=== PATIENT | female | born 1995 | race Caucasian/White ===

== ENCOUNTER 2017-01-27 15:50 | Emergency (ER) | payer BC, MEDICAID ==
--- NOTE | 2017-01-27 18:37 | EDM.PDOC ---
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 Past medical history: As per history of present illness and as reviewed below otherwise noncontributory. Surgical history: As per history of present illness and as reviewed below otherwise noncontributory. Social history: No reported history of drug or alcohol abuse. Family history: As per history of present illness and as reviewed below otherwise noncontributory. Physical exam: Alert and oriented female who is good eye contact HEENT: Atraumatic, normocehpalic, pupils reactive, negative for conjunctival pallor or scleral icterus, mucous membranes moist, throat clear, neck supple, nontender, trachea midline. Lungs: Clear to auscultation, breath sounds equal bilaterally, chest non tender. Heart: S1S2, regular, negative for clicks, rubs, or JVD. Abdomen: Soft, nondistended, nontender. Negative for masses or hepatossplenmegaly. Negative for costovertebral tenderness. Pelvis: Stable nontender. Genitourinary: Deferred. Rectal: Deferred Extremities: Atraumatic, negative for cords or calf pain. Neurovascular unremarkable. Neuro: Awake, alert, oriented. Cranial nerves II through XII unremarkable. Cerebellum unremarkable. Motor and sensory unremarkable throughout. Exam nonfocal. Diagnostics: [Transvaginal ultrasound CBC UA] Therapeutics: [] Impression: []Nonviable pregnancyAB UTI Plan: [Amoxicillin 500 3 times a day 7 days] Definitive disposition and diagnosis as appropriate pending reevaluation and review of above. Onset: Today, Sudden Duration: Hour(s): Location: Reports: Pelvis Bilateral Lower Abdomen Pain Score (Numeric/FACES): 5 - Related Data Allergies Allergy/AdvReac Type Severity Reaction Status Date / Time No Known Allergies Allergy Verified 01/31/15 23:06 Home Meds: Home Meds Vit No.78/Iron/Fa [Prenatabs FA] 1 each PO DAILY 01/25/15 [History] Amoxicillin 500 mg PO TID #21 capsule 01/27/17 [Rx] Past Medical History - Past Health History Medical/Surgical History: Denies Medical/Surgical History Cardiovascular History: Reports: None Respiratory History: Reports: None Gastrointestinal History: Reports: None Genitourinary History: Reports: STD Other Genitourinary History: Chlamydia 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: Musculoskeletal History: Reports: None Neurological History: Reports: None Psychiatric History: Reports: None Endocrine/Metabolic History: Reports: None Hematologic History: Reports: None Immunologic History: Reports: None Oncologic (Cancer) History: Reports: None Dermatologic History: Reports: None - Infectious Disease History Infectious Disease History: Reports: None Other Infectious Disease History: Chlamydia - Past Surgical History Head Surgeries/Procedures: Reports: None HEENT Surgical History: Reports: Adenoidectomy, Tonsillectomy Female Surgical History: Reports: Section Social & Family History - Tobacco Use Smoking Status *Q: Current Every Day Smoker Years of Tobacco use: 13 Packs/Tins Daily: 0.5 Used Tobacco, but Quit: No Second Hand Smoke Exposure: Yes - Recreational Drug Use Recreational Drug Use: No ED ROS GENERAL - Review of Systems Review Of Systems: ROS reveals no pertinent complaints other than HPI. ED EXAM, GI/ABD - Physical Exam Exam: See Below (see dictation) Course - Vital Signs Last Recorded V/S: Last Vital Signs Temp 36.7 C 01/27/17 16:05 Pulse 105 H 01/27/17 16:05 Resp 18 01/27/17 16:05 BP 114/66 01/27/17 16:05 Pulse Ox 98 01/27/17 16:05 - Orders/Labs/Meds Orders: Active Orders 24 hr Category Date Time Status EKG Documentation Completion [RC] STAT Care 01/27/17 17:24 Inactive Orthostatic Vital Signs [RC] ASDIRECTED Care 01/27/17 17:23 Inactive OB Transvaginal [US] Stat Exams 01/27/17 17:14 Taken Labs: Laboratory Tests 01/27/17 01/27/17 01/27/17 Range/Units 16:20 16:20 17:36 WBC 10.04 (4.0-11.0) K/uL RBC 4.37 (4.30-5.90) M/uL Hgb 12.8 (12.0-16.0) g/dL Hct 38.3 (36.0-46.0) % MCV 87.6 (80.0-98.0) fL MCH 29.3 (27.0-32.0) pg MCHC 33.4 (31.0-37.0) g/dL RDW Std Deviation 44.3 (28.0-62.0) fl RDW Coeff of Juju 14 (11.0-15.0) % Plt Count 247 (150-400) K/uL MPV 10.10 (7.40-12.00) fL Neut % (Auto) 67.0 (48.0-80.0) % Lymph % (Auto) 24.1 (16.0-40.0) % [place] % (Auto) 6.9 (0.0-15.0) % Eos % (Auto) 1.8 (0.0-7.0) % Baso % (Auto) 0.2 (0.0-1.5) % Neut # (Auto) 6.7 H (1.4-5.7) K/uL Lymph # (Auto) 2.4 (0.6-2.4) K/uL [place] # (Auto) 0.7 (0.0-0.8) K/uL Eos # (Auto) 0.2 (0.0-0.7) K/uL Baso # (Auto) 0.0 (0.0-0.1) K/uL Nucleated RBC % 0.0 /100WBC Nucleated RBCs # 0 K/uL HCG, Quant mIU/mL Urine Color YELLOW Urine Appearance SLT CLOUDY Urine pH 6.0 (5.0-8.0) Ur Specific [place] 1.025 (1.001-1.035) Urine Protein NEGATIVE (NEGATIVE) mg/dL Urine Glucose (UA) NEGATIVE (NEGATIVE) mg/dL Urine Ketones NEGATIVE (NEGATIVE) mg/dL Urine Occult Blood LARGE H (NEGATIVE) Urine Nitrite POSITIVE H (NEGATIVE) Urine Bilirubin NEGATIVE (NEGATIVE) Urine Urobilinogen 0.2 (<2.0) EU/dL Ur Leukocyte Esterase NEGATIVE (NEGATIVE) Urine RBC 1-3 (0-2/HPF) Urine WBC 3-5 (0-5/HPF) Ur Epithelial Cells FEW (NONE-FEW) Urine Bacteria 3+ H (NEGATIVE) Urine Mucus MODERATE (NONE-MOD) Urine HCG, Qual POSITIVE (NEGATIVE) 01/27/17 Range/Units 17:36 WBC (4.0-11.0) K/uL RBC (4.30-5.90) M/uL Hgb (12.0-16.0) g/dL Hct (36.0-46.0) % MCV (80.0-98.0) fL MCH (27.0-32.0) pg MCHC (31.0-37.0) g/dL RDW Std Deviation (28.0-62.0) fl RDW Coeff of Juju (11.0-15.0) % Plt Count (150-400) K/uL MPV (7.40-12.00) fL Neut % (Auto) (48.0-80.0) % Lymph % (Auto) (16.0-40.0) % [place] % (Auto) (0.0-15.0) % Eos % (Auto) (0.0-7.0) % Baso % (Auto) (0.0-1.5) % Neut # (Auto) (1.4-5.7) K/uL Lymph # (Auto) (0.6-2.4) K/uL [place] # (Auto) (0.0-0.8) K/uL Eos # (Auto) (0.0-0.7) K/uL Baso # (Auto) (0.0-0.1) K/uL Nucleated RBC % /100WBC Nucleated RBCs # K/uL HCG, Quant 28724.5 mIU/mL Urine Color Urine Appearance Urine pH (5.0-8.0) Ur Specific [place] (1.001-1.035) Urine Protein (NEGATIVE) mg/dL Urine Glucose (UA) (NEGATIVE) mg/dL Urine Ketones (NEGATIVE) mg/dL Urine Occult Blood (NEGATIVE) Urine Nitrite (NEGATIVE) Urine Bilirubin (NEGATIVE) Urine Urobilinogen (<2.0) EU/dL Ur Leukocyte Esterase (NEGATIVE) Urine RBC (0-2/HPF) Urine WBC (0-5/HPF) Ur Epithelial Cells (NONE-FEW) Urine Bacteria (NEGATIVE) Urine Mucus (NONE-MOD) Urine HCG, Qual (NEGATIVE) Departure - Departure Time of Disposition: 18:34 Disposition: Home, Self-Care 01 Condition: Good Clinical Impression: Incomplete - Discharge Information Prescriptions: Amoxicillin 500 mg PO TID #21 capsule Forms: ED Department Discharge Additional Instructions: The following information is given to patients seen in the emergency department who are being discharged to home. This information is to outline your options for follow-up care. We provide all patients seen in our emergency department with a follow-up referral. The need for follow-up, as well as the timing and circumstances, are variable depending upon the specifics of your emergency department visit. If you don't have a primary care physician on staff, we will provide you with a referral. We always advise you to contact your personal physician following an emergency department visit to inform them of the circumstance of the visit and for follow-up with them and/or the need for any referrals to a consulting specialist. The emergency department will also refer you to a specialist when appropriate. This referral assures that you have the opportunity for followup care with a specialist. All of these measure are taken in an effort to provide you with optimal care, which includes your followup. Under all circumstances we always encourage you to contact your private physician who remains a resource for coordinating your care. When calling for followup care, please make the office aware that this follow-up is from your recent emergency room visit. If for any reason you are refused follow-up, please contact the [facility] emergency department at and asked to speak to the emergency department charge nurse. You have an incomplete miscarriage at this time Keep appointment with Dr. Moise tomorrow Was noted that she had a urinary tract infection amoxicillin prescription has been sent to your pharmacy - My Orders Last 24 Hours: My Active Orders 01/27/17 17:14 OB Transvaginal [US] Stat 01/27/17 17:23 Orthostatic Vital Signs [RC] ASDIRECTED 01/27/17 17:24 EKG Documentation Completion [RC] STAT - Assessment/Plan Last 24 Hours: My Active Orders 01/27/17 17:14 OB Transvaginal [US] Stat 01/27/17 17:23 Orthostatic Vital Signs [RC] ASDIRECTED 01/27/17 17:24 EKG Documentation Completion [RC] STAT
[2017-01-27 18:56] VITALS: BP 113/65
--- NOTE | 2017-01-28 09:03 | US ---
EXAM DATE: 01/27/17 PATIENT'S AGE: 21 Patient: DAYDAY MORENO Facility: [place], [place] Site . Site : 1995 Study: US OB Pelvis [id number] 5:39:57 PM Ordering Physician: Doctor Garcia Final Report: Indication: Pain, 6 weeks Technique: Ultrasound OB pelvis, transvaginal only Comparison: None Findings: The endometrium is thickened at 1.7 centimeters. No evidence of an intrauterine gestational sac. Complex material in the endometrial canal at the level of the lower uterine segment. Findings may represent retained products of conception or blood products. The ovaries and adnexa are normal. No free fluid identified. Impression: No evidence of intrauterine gestational sac. Correlate with beta HCG levels. Complex material endometrial canal at the level of the lower uterine segment. Findings may represent retained products of conception or blood products. Thickened endometrium at 17 millimeters. Normal ovaries and adnexa. Dictated by Keron Reese MD @ 01/27/2017 6:23:47 PM Dictated by: Keron Reese MD @ 01/27/2017 18:24:03 (Electronic Signature) Report Signed by Proxy. MATT
== END 2017-01-27 18:52 | disposition home or self-care (01) ==
LOC: MW.ED 15:50
DX: O03.4 Incomplete spontaneous abortion without complication (principal); F17.210 Nicotine dependence, cigarettes, uncomplicated; Z98.890 Other specified postprocedural states
CPT/HCPCS: 36415; 76817; 76817-26; 81001; 81025; 84702; 85025; 99283; 99284-25

== ENCOUNTER 2017-11-16 13:31 | Emergency (ER) | payer OTHER ==
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
[2017-11-16 15:33] VITALS: BP 102/58
== END 2017-11-16 16:02 | disposition home or self-care (01) ==
LOC: MW.ED 13:31
DX: O9A.213 Injury, poisoning and certain other consequences of external causes complicating pregnancy, third trimester (principal); S50.311A Abrasion of right elbow, initial encounter; O99.333 Smoking (tobacco) complicating pregnancy, third trimester; F17.210 Nicotine dependence, cigarettes, uncomplicated; Z3A.33 33 weeks gestation of pregnancy; V49.50XA Passenger injured in collision with unspecified motor vehicles in traffic accident, initial encounter
CPT/HCPCS: 99284; G0390

== ENCOUNTER 2017-12-23 05:00 | Inpatient (IN) | payer MEDICAID ==
[~2017-12-23 05:00] MED LIST: Citric Acid/Sodium Citrate Solution 30 ML Cup PO SCH; Lactated Ringers 1,000 ML IV SCH; Oxytocin/0.9 % Sodium Chloride 30 UNIT/500 ML BAG IV SCH; Sodium Chloride 0.9% 10 ML Syringe FLUSH PRN; Sodium Chloride 0.9% 2.5 ML Syringe FLUSH PRN; [UNRECOGNIZED DRUG - REMARK] PO SCH; ceFAZolin 1 GM in Premix Bag 1 BAG IV ONE
[2017-12-23] MEDS: Lactated Ringers 1,000 ML IV SCH ×2 (05:40→07:52)
[2017-12-23] MEDS ORDERED: Citric Acid/Sodium Citrate Solution 30 ML Cup PO SCH (06:00)
[2017-12-23] MEDS ORDERED: Prenatal Multivitamin and Multimineral with Iron Tab PO SCH (06:00)
[2017-12-23] MEDS ORDERED: Oxytocin/0.9 % Sodium Chloride 30 UNIT/500 ML BAG IV SCH (06:00)
[2017-12-23] MEDS ORDERED: Sodium Chloride 0.9% 10 ML Syringe FLUSH PRN (06:00)
[2017-12-23] MEDS ORDERED: Sodium Chloride 0.9% 2.5 ML Syringe FLUSH PRN (06:00)
--- NOTE | 2017-12-23 07:05 | PCM.PREANE ---
Preanesthetic Assessment - Anesthesia/Transfusion/Family Hx Anesthesia History: Prior Anesthesia Reaction Other Type of Anesthesia Reaction Comment: patient states she was numb for a week post-anesthesia Family History of Anesthesia Reaction: No Transfusion History: No Prior Transfusion(s) Intubation History: Unknown - Review of Systems General: No Symptoms Pulmonary: No Symptoms Cardiovascular: No Symptoms Gastrointestinal: No Symptoms Neurological: No Symptoms Other: Reports: None - Physical Assessment Height: 1.57 m Weight: 54.885 kg ASA Class: 2 Mental Status: Alert & Oriented x3 Airway Class: Mallampati = 1 Dentition: Reports: Normal Dentition (lower retainer) Thyro-Mental Finger Breadths: 3 Mouth Opening Finger Breadths: 3 ROM/Head Extension: Full Lungs: Clear to Auscultation, Normal Respiratory Effort Cardiovascular: Regular Rate, Regular Rhythm - Lab Values: Laboratory Last Values WBC 9.91 K/uL (4.0-11.0) 12/23/17 05:35 RBC 3.70 M/uL (4.30-5.90) L 12/23/17 05:35 Hgb 11.0 g/dL (12.0-16.0) L 12/23/17 05:35 Hct 32.9 % (36.0-46.0) L 12/23/17 05:35 MCV 88.9 fL (80.0-98.0) 12/23/17 05:35 MCH 29.7 pg (27.0-32.0) 12/23/17 05:35 MCHC 33.4 g/dL (31.0-37.0) 12/23/17 05:35 RDW Std Deviation 44.1 fl (28.0-62.0) 12/23/17 05:35 RDW Coeff of Juju 14 % (11.0-15.0) 12/23/17 05:35 Plt Count 244 K/uL (150-400) 12/23/17 05:35 MPV 10.80 fL (7.40-12.00) 12/23/17 05:35 Nucleated RBC % 0.0 /100WBC 12/23/17 05:35 Nucleated RBCs # 0 K/uL 12/23/17 05:35 Blood Type O POSITIVE 12/23/17 05:35 Antibody Screen NEGATIVE 12/23/17 05:35 - Allergies Allergies/Adverse Reactions: Allergies Allergy/AdvReac Type Severity Reaction Status Date / Time No Known Allergies Allergy Verified 12/23/17 06:44 - Blood Blood Available: No - Anesthesia Plan Pre-Op Medication Ordered: None - Acknowledgements Anesthesia Type Planned: Spinal Pt an Appropriate Candidate for the Planned Anesthesia: Yes Alternatives and Risks of Anesthesia Discussed w Pt/Guardian: Yes Pt/Guardian Understands and Agrees with Anesthesia Plan: Yes PreAnesthesia Questionnaire - Past Health History Medical/Surgical History: Denies Medical/Surgical History HEENT History: Reports: Other (See Below) Other HEENT History: has permanent dental retainer Cardiovascular History: Reports: None Respiratory History: Reports: None Gastrointestinal History: Reports: GERD Other Gastrointestinal History: during Genitourinary History: Reports: None Other Genitourinary History: Chlamydia 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: , 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 Musculoskeletal History: Reports: Back Pain, Chronic, Other (See Below) Other Musculoskeletal History: 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" Neurological History: Reports: None Psychiatric History: Reports: None Endocrine/Metabolic History: Reports: None Hematologic History: Reports: None Immunologic History: Reports: None Oncologic (Cancer) History: Reports: None Dermatologic History: Reports: None - Infectious Disease History Infectious Disease History: Reports: None Other Infectious Disease History: Chlamydia - Past Surgical History HEENT Surgical History: Reports: Adenoidectomy, Tonsillectomy Female Surgical History: Reports: Section (x2, one with epidural the other with spinal) Musculoskeletal Surgical History: Reports: None - SUBSTANCE USE Smoking Status *Q: Current Every Day Smoker Tobacco Use Within Last Twelve Months: Cigarettes Recreational Drug Use History: No - HOME MEDS Home Medications: Home Meds Vit No.78/Iron/Fa [Prenatabs FA] 1 each PO DAILY 01/25/15 [History] - CURRENT (IN HOUSE) MEDS Current Meds: Current Medications Citric Acid/Sodium Citrate (Bicitra Solution) 30 ml PO .ONCE CHENG Lactated Ringer's (Ringers, Lactated) 1,000 mls @ 500 mls/hr IV .BOLUS CHENG Last Admin: 12/23/17 05:40 Dose: 150 mls/hr Oxytocin/Sodium Chloride (Oxytocin 30 Unit/500 Ml-Ns) 30 unit in 500 mls @ 250 mls/hr IV TITRATE CHENG Cefazolin Sodium/Dextrose 1 gm (/ Premix) 50 mls @ 100 mls/hr IV ONETIME ONE Stop: 12/23/17 08:04 Prenat Multivit/[place]/Iron/Folic Ac ( Mtr) 1 each PO DAILY CHENG Sodium Chloride (Saline Flush) 10 ml FLUSH ASDIRECTED PRN PRN Reason: Keep Vein Open Sodium Chloride (Saline Flush) 2.5 ml FLUSH ASDIRECTED PRN PRN Reason: Keep Vein Open Discontinued Medications Citric Acid/Sodium Citrate (Bicitra Solution) 30 ml PO .ONCE CHENG Cefazolin Sodium/Dextrose 1 gm (/ Premix) 50 mls @ 100 mls/hr IV ONETIME ONE Stop: 12/22/17 09:04 Lactated Ringer's (Ringers, Lactated) 1,000 mls @ 500 mls/hr IV .BOLUS CHENG Oxytocin/Sodium Chloride (Oxytocin 30 Unit/500 Ml-Ns) 30 unit in 500 mls @ 250 mls/hr IV TITRATE CHENG Non-Formulary Medication ( Vit No.78/Iron/Fa [Prenatabs Fa]) 1 each PO DAILY CHENG Sodium Chloride (Saline Flush) 10 ml FLUSH ASDIRECTED PRN PRN Reason: Keep Vein Open Sodium Chloride (Saline Flush) 2.5 ml FLUSH ASDIRECTED PRN PRN Reason: Keep Vein Open
[2017-12-23] MEDS ORDERED: Ondansetron 4 MG/2 ML SDV ONE (07:16)
[2017-12-23] MEDS ORDERED: Oxytocin 10 Units/1 ML SDV ONE (07:16)
[2017-12-23] MEDS ORDERED: Morphine PF 1 MG/ML Amp ONE (07:17)
[2017-12-23] MEDS ORDERED: ceFAZolin 1 GM in Premix Bag 1 BAG IV ONE (07:35)
[2017-12-23] MEDS ORDERED: Citric Acid/Sodium Citrate Solution 30 ML Cup ONE (07:49)
[2017-12-23] MEDS ORDERED: Sodium Chloride 0.9% 20 ML ONE (08:06)
[2017-12-23] MEDS ORDERED: ceFAZolin 1 GM Vial ONE (08:06)
[2017-12-23] MEDS ORDERED: Glycopyrrolate 0.2 MG/ML SDV ONE ×2 (08:12→08:17)
[2017-12-23] MEDS ORDERED: Phenylephrine/Normal Saline 100 MCG/ML 10 ML Syringe ONE (08:29)
[2017-12-23] MEDS ORDERED: Octyl 2-Cyanoacrylate 1 Tube ONE (08:33)
--- NOTE | 2017-12-23 08:51 | PCM.OPNOTE ---
- General Post-Op/Procedure Note Date of Surgery/Procedure: 12/23/17 Operative Procedure(s): repeat low transverse Findings: liveborn male 99 weight 3250 grams, normal appearing uterus, tubes and ovaries. Pre Op Diagnosis: 39 1/7 weeks prior c-sections Post-Op Diagnosis: Same Anesthesia Technique: Spinal Primary Surgeon: Christiane Fabian Anesthesia Provider: Aida Cunningham Pole Shaver: Napoleon Galvin Pathology: none Fluid Replacement, Intraop: 800 EBL in mLs: 500 Complications: None Known Condition: Good
[2017-12-23] MEDS ORDERED: Bisacodyl 10 MG Supp RECTAL PRN (08:52)
[2017-12-23] MEDS ORDERED: Acetaminophen/oxyCODONE 325-5 MG Tab PO PRN (08:52)
[2017-12-23] MEDS ORDERED: Lanolin 100% Cream 7 GM Tube TOP PRN (08:52)
[2017-12-23] MEDS ORDERED: Ondansetron 4 MG/2 ML SDV IV PRN (08:52)
[2017-12-23] MEDS ORDERED: diphenhydrAMINE 50 MG/ML SDV IVPUSH PRN ×2 (08:52→15:50)
[2017-12-23] MEDS ORDERED: Lactated Ringers 1,000 ML IV SCH (09:00)
[2017-12-23] MEDS ORDERED: Ketorolac 30 MG/ML SDV ONE (09:04)
[2017-12-23] MEDS: Ketorolac 30 MG/ML SDV IVPUSH SCH ×3 (09:05→21:01)
[2017-12-23] MEDS: Docusate Sodium 100 MG Cap PO SCH ×2 (13:02→21:01)
[2017-12-23] MEDS: Nicotine 21 MG/24 Hr Patch TRDERM SCH (13:34)
--- NOTE | 2017-12-23 15:02 | OR ---
SURGEON: Christiane Fabian M.D. DATE OF PROCEDURE: 12/23/2017 PREOPERATIVE DIAGNOSES: 1. A 39 and 1/7 week intrauterine . 2. Prior delivery x2. POSTOPERATIVE DIAGNOSES: 1. A 39 and 1/7 week intrauterine . 2. Prior delivery x2. PROCEDURE: Repeat low-transverse section. ANESTHESIA: Spinal. ESTIMATED BLOOD LOSS: Less than 500 mL. FLUIDS: 800 mL crystalloid. FINDINGS: Live born male, scores 9 and 9, weighing 3250 g. Normal-appearing uterus, tubes, and ovaries. COMPLICATIONS: None known. DISPOSITION: Stable to recovery. BRIEF HISTORY: This is a 22-year-old female, she is G3, P2 who presents at 39 and 1/7 weeks for repeat low-transverse section. Her care has been with Aminah Duggan, and Dr. Elizalde for whom I am covering as Locums. She presents at 39 and 1/7 weeks requesting repeat with risks having been discussed including bleeding, infection, injury to bowel, bladder, blood vessels, ureters or other organs, risk of thromboembolic event, risk of anesthesia. Understanding all these risks, she does desire to proceed. DESCRIPTION OF PROCEDURE: With the patient in left tilt position, under adequate spinal analgesia, the abdomen was prepped with chlorhexidine and draped in usual fashion for abdominal surgery. SCDs were in place. Barakat catheter had been placed. She had received 1 g of Ancef IV and an appropriate time-out was held. The prior cicatrix was excised and transverse incision was carried across the lower abdomen, 2 cm cephalad from the pubic symphysis to the fascia, which was scored transversely in the midline. The fascial incision was extended laterally using curved Jensen scissors. The rectus muscles were bluntly in the midline and the Vahid O retractor was placed. The visceroperitoneum over the lower uterine segment was incised to develop an adequate bladder flap and a transverse curvilinear incision was made over the lower uterine segment and incised bluntly. The amniotic membranes were ruptured, clear fluid was noted. The head was delivered via the uterine incision with fundal pressure with subsequent delivery of the infant's shoulders and body without any difficulty. The was bulb suctioned by nose and mouth. Cord was clamped x2 and cut. The handed to the nurse in attendance at delivery. The was a liveborn male, scores 9 and 9, weighing 3250 g. Cord blood was collected for cord ABGs as well as routine cord blood sampling. The placenta was removed by manual extraction. The uterus was cleaned with a dry laparotomy tape. The cervix was opened with a ring forceps. The uterine incision was closed with a running lock suture of 0 Polysorb followed by an imbricating layer of 0 Polysorb. The posterior cul-de-sac and paracolic gutters were cleaned with a wet laparotomy tape. The uterine incision was inspected, there was a single area of bleeding in the midline, which was controlled with a single figure-of- eight suture of 0 Polysorb. With the uterine incision being completely hemostatic, the uterus being firm having received Pitocin, the Vahid retractor was removed. Preliminary sponge count was correct. The rectus muscle and peritoneum were loosely approximated in the midline using a running mattress suture of 0 Polysorb. The posterior aspect of the fascia was inspected and any areas of bleeding that were noted were cauterized. The fascial incision was closed with a running suture of 0 Polysorb. Subcutaneous tissue was irrigated. Any areas of bleeding that were noted were cauterized. The skin was closed with a running subcuticular suture of 4-0 Monocryl followed by Dermabond. Final sponge, needle, and instrument counts were reported as correct. There were no known complications. The patient was transferred to recovery in good condition. is in nursery in good condition. OPAL TENORIO /[id number]
[2017-12-23] MEDS ORDERED: Naloxone 0.4 MG/ML Syringe IVPUSH PRN (15:50)
[2017-12-23] MEDS ORDERED: Nalbuphine 10 MG/ML 10 ML MDV IVPUSH PRN (15:50)
[2017-12-24] MEDS: Ketorolac 30 MG/ML SDV IVPUSH SCH ×2 (03:08→08:53)
--- NOTE | 2017-12-24 07:58 | PCM.PNPP ---
<DebTejal - Last Filed: 12/24/17 07:55> - General Info Date of Service: 12/24/17 - Review of Systems General: Denies: Fever, Weakness, Fatigue Pulmonary: Denies: Shortness of Breath, Pleuritic Chest Pain, Cough Cardiovascular: Denies: Chest Pain, Palpitations, Dyspnea on Exertion Gastrointestinal: Denies: Abdominal Pain Genitourinary: Denies: Dysuria - General Info Date of Service: 12/24/17 - Patient Data Vital Signs - Most Recent: Last Vital Signs Temp 36.4 C 12/24/17 04:00 Pulse 65 12/24/17 07:43 Resp 16 12/24/17 06:00 BP 99/57 L 12/24/17 04:00 Pulse Ox 96 12/24/17 07:43 Weight - Most Recent: 54.885 kg I&O - Last 24 Hours: Intake & Output 12/23/17 12/24/17 12/24/17 22:59 06:59 14:59 Output Total 950 Balance -950 Lab Results - Last 24 Hours: Laboratory Results - last 24 hr 12/24/17 Range/Units 05:10 Hgb 8.8 L (12.0-16.0) g/dL Hct 26.3 L (36.0-46.0) % Med Orders - Current: Current Medications Bisacodyl (Dulcolax) 10 mg RECTAL .ONCE PRN PRN Reason: Constipation Diphenhydramine HCl (Benadryl) 25 mg IVPUSH Q6H PRN PRN Reason: Itching or Nausea Diphenhydramine HCl (Benadryl) 25 mg IVPUSH Q4H PRN PRN Reason: Itching Stop: 12/24/17 15:53 Docusate Sodium (Colace) 100 mg PO BID [facility] Last Admin: 12/23/17 21:01 Dose: 100 mg Emollient Ointment (Lansinoh Hpa) 0 gm TOP ASDIRECTED PRN PRN Reason: Sore Nipples Lactated Ringer's (Ringers, Lactated) 1,000 mls @ 125 mls/hr IV ASDIRECTED [facility] Ibuprofen (Motrin) 800 mg PO Q8H PRN PRN Reason: mild pain or fever Ketorolac Tromethamine (Toradol) 30 mg IVPUSH Q6H [facility] Stop: 12/24/17 09:01 Last Admin: 12/24/17 03:08 Dose: 30 mg Nalbuphine HCl (Nubain) 5 mg IVPUSH Q3H PRN PRN Reason: Pruritis Stop: 12/24/17 15:52 Naloxone HCl (Narcan) 0.1 mg IVPUSH ONETIME PRN PRN Reason: Respiratory Depression Stop: 12/24/17 15:53 Nicotine (Habitrol) 21 mg TRDERM DAILY [facility] Last Admin: 12/23/17 13:34 Dose: 21 mg Ondansetron HCl (Zofran) 4 mg IV Q4H PRN PRN Reason: Nausea/Vomiting Oxycodone/Acetaminophen (Percocet 325-5 Mg) 1 tab PO Q4H PRN PRN Reason: Pain (moderate 4-6) Oxycodone/Acetaminophen (Percocet 325-5 Mg) 2 tab PO Q4H PRN PRN Reason: Pain (moderate 4-6) Discontinued Medications Cefazolin Sodium (Ancef) Confirm Administered Dose 1 gm .ROUTE .STK-MED ONE Stop: 12/23/17 08:07 Citric Acid/Sodium Citrate (Bicitra Solution) 30 ml PO .ONCE [facility] Citric Acid/Sodium Citrate (Bicitra Solution) 30 ml PO .ONCE [facility] Last Admin: 12/23/17 07:51 Dose: 30 ml Citric Acid/Sodium Citrate (Bicitra Solution) Confirm Administered Dose 30 ml .ROUTE .STK-MED ONE Stop: 12/23/17 07:50 Glycopyrrolate (Robinul) Confirm Administered Dose 0.2 mg .ROUTE .STK-MED ONE Stop: 12/23/17 08:13 Glycopyrrolate (Robinul) Confirm Administered Dose 0.2 mg .ROUTE .STK-MED ONE Stop: 12/23/17 08:18 Cefazolin Sodium/Dextrose 1 gm (/ Premix) 50 mls @ 100 mls/hr IV ONETIME ONE Stop: 12/22/17 09:04 Lactated Ringer's (Ringers, Lactated) 1,000 mls @ 500 mls/hr IV .BOLUS [facility] Oxytocin/Sodium Chloride (Oxytocin 30 Unit/500 Ml-Ns) 30 unit in 500 mls @ 250 mls/hr IV TITRATE [facility] Lactated Ringer's (Ringers, Lactated) 1,000 mls @ 500 mls/hr IV .BOLUS [facility] Last Admin: 12/23/17 07:52 Dose: 150 mls/hr Oxytocin/Sodium Chloride (Oxytocin 30 Unit/500 Ml-Ns) 30 unit in 500 mls @ 250 mls/hr IV TITRATE [facility] Cefazolin Sodium/Dextrose 1 gm (/ Premix) 50 mls @ 100 mls/hr IV ONETIME ONE Stop: 12/23/17 08:04 Sodium Chloride (Normal Saline) Confirm Administered Dose 20 mls @ as directed .ROUTE .STK-MED ONE Stop: 12/23/17 08:07 Ketorolac Tromethamine (Toradol) Confirm Administered Dose 30 mg .ROUTE .STK- MED ONE Stop: 12/23/17 09:05 Last Admin: 12/23/17 13:02 Dose: Not Given Morphine Sulfate (Duramorph Pf) Confirm Administered Dose 1 mg .ROUTE .STK-MED ONE Stop: 12/23/17 07:18 Non-Formulary Medication ( Vit No.78/Iron/Fa [Prenatabs Fa]) 1 each PO DAILY [facility] Octyl Cyanoacrylate (Dermabond Advance) Confirm Administered Dose 1 applic .ROUTE .STK-MED ONE Stop: 12/23/17 08:34 Ondansetron HCl (Zofran) Confirm Administered Dose 4 mg .ROUTE .STK-MED ONE Stop: 12/23/17 07:17 Oxytocin (Pitocin) Confirm Administered Dose 20 unit .ROUTE .STK-MED ONE Stop: 12/23/17 07:17 Phenylephrine HCl (Phenylephrine In Ns 100 Mcg/Ml) Confirm Administered Dose 1 mg .ROUTE .STK-MED ONE Stop: 12/23/17 08:30 Prenat Multivit/Professor [employer]/Iron/Folic Ac ( Mtr) 1 each PO DAILY [facility] Sodium Chloride (Saline Flush) 10 ml FLUSH ASDIRECTED PRN PRN Reason: Keep Vein Open Sodium Chloride (Saline Flush) 2.5 ml FLUSH ASDIRECTED PRN PRN Reason: Keep Vein Open Sodium Chloride (Saline Flush) 10 ml FLUSH ASDIRECTED PRN PRN Reason: Keep Vein Open Sodium Chloride (Saline Flush) 2.5 ml FLUSH ASDIRECTED PRN PRN Reason: Keep Vein Open - Infant Interaction Infant Disposition, : in Room with Family Interaction: Holding Feeding: Bottle Fed Infant Support Person: Other (see below) - Recovery Exam Fundal Tone: Firm Fundal Level: At Umbilicus Fundal Placement: Midline Lochia Amount: Scant Lochia Color: Rubra/Red Perineum Description: Intact, Minimal Bruising/Swelling Episiotomy/Laceration: None Bladder Status: Voiding Urinary Elimination: Voided - Exam General: Alert, Oriented Lungs: Clear to Auscultation, Normal Respiratory Effort Cardiovascular: Regular Rate, Regular Rhythm GI/Abdominal Exam: Normal Bowel Sounds, Soft, Non-Tender, No Distention Extremities: Normal Inspection, Normal Capillary Refill, Pedal Edema (trace) Skin: Warm, Dry, Intact - Problem List & Annotations (1) delivery delivered SNOMED Code(s): 447302691 Code(s): O82 - ENCOUNTER FOR DELIVERY WITHOUT INDICATION Status: Acute Current Visit: Yes - Problem List Review Problem List Initiated/Reviewed/Updated: Yes - Assessment Assessment:: POD#1 s/p RLTCS. Bottle fed . Minimal pain and lochia. Anticipate discharge home today. - Plan Plan:: Continue routine post-op cares. <Laura Lindo - Last Filed: 12/24/17 09:15> - Patient Data Vital Signs - Most Recent: Last Vital Signs Temp 36.7 C 12/24/17 07:56 Pulse 80 12/24/17 07:56 Resp 14 12/24/17 07:56 BP 107/53 L 12/24/17 07:56 Pulse Ox 100 12/24/17 07:56 I&O - Last 24 Hours: Intake & Output 12/23/17 12/24/17 12/24/17 22:59 06:59 14:59 Output Total 950 Balance -950 Lab Results - Last 24 Hours: Laboratory Results - last 24 hr 12/24/17 Range/Units 05:10 Hgb 8.8 L (12.0-16.0) g/dL Hct 26.3 L (36.0-46.0) % Med Orders - Current: Current Medications Bisacodyl (Dulcolax) 10 mg RECTAL .ONCE PRN PRN Reason: Constipation Diphenhydramine HCl (Benadryl) 25 mg IVPUSH Q6H PRN PRN Reason: Itching or Nausea Diphenhydramine HCl (Benadryl) 25 mg IVPUSH Q4H PRN PRN Reason: Itching Stop: 12/24/17 15:53 Docusate Sodium (Colace) 100 mg PO BID [facility] Last Admin: 12/23/17 21:01 Dose: 100 mg Emollient Ointment (Lansinoh Hpa) 0 gm TOP ASDIRECTED PRN PRN Reason: Sore Nipples Lactated Ringer's (Ringers, Lactated) 1,000 mls @ 125 mls/hr IV ASDIRECTED [facility] Ibuprofen (Motrin) 800 mg PO Q8H PRN PRN Reason: mild pain or fever Ketorolac Tromethamine (Toradol) 30 mg IVPUSH Q6H [facility] Stop: 12/24/17 09:01 Last Admin: 12/24/17 03:08 Dose: 30 mg Nalbuphine HCl (Nubain) 5 mg IVPUSH Q3H PRN PRN Reason: Pruritis Stop: 12/24/17 15:52 Naloxone HCl (Narcan) 0.1 mg IVPUSH ONETIME PRN PRN Reason: Respiratory Depression Stop: 12/24/17 15:53 Nicotine (Habitrol) 21 mg TRDERM DAILY [facility] Last Admin: 12/23/17 13:34 Dose: 21 mg Ondansetron HCl (Zofran) 4 mg IV Q4H PRN PRN Reason: Nausea/Vomiting Oxycodone/Acetaminophen (Percocet 325-5 Mg) 1 tab PO Q4H PRN PRN Reason: Pain (moderate 4-6) Oxycodone/Acetaminophen (Percocet 325-5 Mg) 2 tab PO Q4H PRN PRN Reason: Pain (moderate 4-6) Discontinued Medications Cefazolin Sodium (Ancef) Confirm Administered Dose 1 gm .ROUTE .STK-MED ONE Stop: 12/23/17 08:07 Citric Acid/Sodium Citrate (Bicitra Solution) 30 ml PO .ONCE [facility] Citric Acid/Sodium Citrate (Bicitra Solution) 30 ml PO .ONCE [facility] Last Admin: 12/23/17 07:51 Dose: 30 ml Citric Acid/Sodium Citrate (Bicitra Solution) Confirm Administered Dose 30 ml .ROUTE .STK-MED ONE Stop: 12/23/17 07:50 Glycopyrrolate (Robinul) Confirm Administered Dose 0.2 mg .ROUTE .STK-MED ONE Stop: 12/23/17 08:13 Glycopyrrolate (Robinul) Confirm Administered Dose 0.2 mg .ROUTE .STK-MED ONE Stop: 12/23/17 08:18 Cefazolin Sodium/Dextrose 1 gm (/ Premix) 50 mls @ 100 mls/hr IV ONETIME ONE Stop: 12/22/17 09:04 Lactated Ringer's (Ringers, Lactated) 1,000 mls @ 500 mls/hr IV .BOLUS [facility] Oxytocin/Sodium Chloride (Oxytocin 30 Unit/500 Ml-Ns) 30 unit in 500 mls @ 250 mls/hr IV TITRATE [facility] Lactated Ringer's (Ringers, Lactated) 1,000 mls @ 500 mls/hr IV .BOLUS [facility] Last Admin: 12/23/17 07:52 Dose: 150 mls/hr Oxytocin/Sodium Chloride (Oxytocin 30 Unit/500 Ml-Ns) 30 unit in 500 mls @ 250 mls/hr IV TITRATE [facility] Cefazolin Sodium/Dextrose 1 gm (/ Premix) 50 mls @ 100 mls/hr IV ONETIME ONE Stop: 12/23/17 08:04 Sodium Chloride (Normal Saline) Confirm Administered Dose 20 mls @ as directed .ROUTE .STK-MED ONE Stop: 12/23/17 08:07 Ketorolac Tromethamine (Toradol) Confirm Administered Dose 30 mg .ROUTE .STK- MED ONE Stop: 12/23/17 09:05 Last Admin: 12/23/17 13:02 Dose: Not Given Morphine Sulfate (Duramorph Pf) Confirm Administered Dose 1 mg .ROUTE .STK-MED ONE Stop: 12/23/17 07:18 Non-Formulary Medication ( Vit No.78/Iron/Fa [Prenatabs Fa]) 1 each PO DAILY [facility] Octyl Cyanoacrylate (Dermabond Advance) Confirm Administered Dose 1 applic .ROUTE .STK-MED ONE Stop: 12/23/17 08:34 Ondansetron HCl (Zofran) Confirm Administered Dose 4 mg .ROUTE .STK-MED ONE Stop: 12/23/17 07:17 Oxytocin (Pitocin) Confirm Administered Dose 20 unit .ROUTE .STK-MED ONE Stop: 12/23/17 07:17 Phenylephrine HCl (Phenylephrine In Ns 100 Mcg/Ml) Confirm Administered Dose 1 mg .ROUTE .STK-MED ONE Stop: 12/23/17 08:30 Prenat Multivit/[place]/Iron/Folic Ac ( Mtr) 1 each PO DAILY [facility] Sodium Chloride (Saline Flush) 10 ml FLUSH ASDIRECTED PRN PRN Reason: Keep Vein Open Sodium Chloride (Saline Flush) 2.5 ml FLUSH ASDIRECTED PRN PRN Reason: Keep Vein Open Sodium Chloride (Saline Flush) 10 ml FLUSH ASDIRECTED PRN PRN Reason: Keep Vein Open Sodium Chloride (Saline Flush) 2.5 ml FLUSH ASDIRECTED PRN PRN Reason: Keep Vein Open - Plan Plan:: Patient seen and examined, only POD 1 so will plan discharge tomorrow, especially with anemia. Iron supplementation orally advised.
--- NOTE | 2017-12-24 09:06 | PCM48HPAN ---
Post Anesthesia Note - EVALUATION WITHIN 48HRS OF ANESTHETIC Vital Signs in Normal Range: Yes Patient Participated in Evaluation: Yes Respiratory Function Stable: Yes Airway Patent: Yes Cardiovascular Function Stable: Yes Hydration Status Stable: Yes Pain Control Satisfactory: Yes Nausea and Vomiting Control Satisfactory: Yes Mental Status Recovered: Yes Resp Rate: 14
[2017-12-24] MEDS: Docusate Sodium 100 MG Cap PO SCH ×2 (09:14→20:58)
[2017-12-24] MEDS: Ibuprofen 800 MG Tab PO PRN ×2 (12:30→20:56)
[2017-12-24] MEDS: Acetaminophen/oxyCODONE 325-5 MG Tab PO PRN ×2 (13:47→18:19)
[2017-12-25] MEDS: Acetaminophen/oxyCODONE 325-5 MG Tab PO PRN (00:34)
[2017-12-25 08:00] VITALS: BP 118/62
--- NOTE | 2017-12-25 08:01 | PCM.PNPP ---
- General Info Date of Service: 12/25/17 Functional Status: Reports: Pain Controlled, Tolerating Diet, Ambulating, Urinating - Review of Systems General: Reports: Fatigue. Denies: Fever, Weakness Pulmonary: Denies: Shortness of Breath Cardiovascular: Denies: Chest Pain, Palpitations, Lightheadedness Gastrointestinal: Reports: Abdominal Pain (controlled with pain meds), Flatus. Denies: Nausea, Vomiting Genitourinary: Denies: Flank Pain Skin: Reports: No Symptoms Psychiatric: Reports: No Symptoms - General Info Date of Service: 12/25/17 - Patient Data Vital Signs - Most Recent: Last Vital Signs Temp 36.6 C 12/25/17 04:00 Pulse 75 12/25/17 04:00 Resp 16 12/25/17 04:00 BP 124/57 L 12/25/17 04:00 Pulse Ox 98 12/25/17 04:00 Weight - Most Recent: 54.885 kg Med Orders - Current: Current Medications Bisacodyl (Dulcolax) 10 mg RECTAL .ONCE PRN PRN Reason: Constipation Diphenhydramine HCl (Benadryl) 25 mg IVPUSH Q6H PRN PRN Reason: Itching or Nausea Docusate Sodium (Colace) 100 mg PO BID [facility] Last Admin: 12/24/17 20:58 Dose: 100 mg Emollient Ointment (Lansinoh Hpa) 0 gm TOP ASDIRECTED PRN PRN Reason: Sore Nipples Lactated Ringer's (Ringers, Lactated) 1,000 mls @ 125 mls/hr IV ASDIRECTED [facility] Ibuprofen (Motrin) 800 mg PO Q8H PRN PRN Reason: mild pain or fever Last Admin: 12/24/17 20:56 Dose: 800 mg Nicotine (Habitrol) 21 mg TRDERM DAILY [facility] Last Admin: 12/23/17 13:34 Dose: 21 mg Ondansetron HCl (Zofran) 4 mg IV Q4H PRN PRN Reason: Nausea/Vomiting Oxycodone/Acetaminophen (Percocet 325-5 Mg) 1 tab PO Q4H PRN PRN Reason: Pain (moderate 4-6) Last Admin: 12/25/17 00:34 Dose: 1 tab Oxycodone/Acetaminophen (Percocet 325-5 Mg) 2 tab PO Q4H PRN PRN Reason: Pain (moderate 4-6) Last Admin: 12/25/17 06:37 Dose: 2 tab Discontinued Medications Cefazolin Sodium (Ancef) Confirm Administered Dose 1 gm .ROUTE .STK-MED ONE Stop: 12/23/17 08:07 Citric Acid/Sodium Citrate (Bicitra Solution) 30 ml PO .ONCE [facility] Citric Acid/Sodium Citrate (Bicitra Solution) 30 ml PO .ONCE [facility] Last Admin: 12/23/17 07:51 Dose: 30 ml Citric Acid/Sodium Citrate (Bicitra Solution) Confirm Administered Dose 30 ml .ROUTE .STK-MED ONE Stop: 12/23/17 07:50 Diphenhydramine HCl (Benadryl) 25 mg IVPUSH Q4H PRN PRN Reason: Itching Stop: 12/24/17 15:53 Glycopyrrolate (Robinul) Confirm Administered Dose 0.2 mg .ROUTE .STK-MED ONE Stop: 12/23/17 08:13 Glycopyrrolate (Robinul) Confirm Administered Dose 0.2 mg .ROUTE .STK-MED ONE Stop: 12/23/17 08:18 Cefazolin Sodium/Dextrose 1 gm (/ Premix) 50 mls @ 100 mls/hr IV ONETIME ONE Stop: 12/22/17 09:04 Lactated Ringer's (Ringers, Lactated) 1,000 mls @ 500 mls/hr IV .BOLUS [facility] Oxytocin/Sodium Chloride (Oxytocin 30 Unit/500 Ml-Ns) 30 unit in 500 mls @ 250 mls/hr IV TITRATE [facility] Lactated Ringer's (Ringers, Lactated) 1,000 mls @ 500 mls/hr IV .BOLUS [facility] Last Admin: 12/23/17 07:52 Dose: 150 mls/hr Oxytocin/Sodium Chloride (Oxytocin 30 Unit/500 Ml-Ns) 30 unit in 500 mls @ 250 mls/hr IV TITRATE [facility] Cefazolin Sodium/Dextrose 1 gm (/ Premix) 50 mls @ 100 mls/hr IV ONETIME ONE Stop: 12/23/17 08:04 Sodium Chloride (Normal Saline) Confirm Administered Dose 20 mls @ as directed .ROUTE .STK-MED ONE Stop: 12/23/17 08:07 Ketorolac Tromethamine (Toradol) 30 mg IVPUSH Q6H [facility] Stop: 12/24/17 09:01 Last Admin: 12/24/17 08:53 Dose: 30 mg Ketorolac Tromethamine (Toradol) Confirm Administered Dose 30 mg .ROUTE .STK- MED ONE Stop: 12/23/17 09:05 Last Admin: 12/23/17 13:02 Dose: Not Given Morphine Sulfate (Duramorph Pf) Confirm Administered Dose 1 mg .ROUTE .STK-MED ONE Stop: 12/23/17 07:18 Nalbuphine HCl (Nubain) 5 mg IVPUSH Q3H PRN PRN Reason: Pruritis Stop: 12/24/17 15:52 Naloxone HCl (Narcan) 0.1 mg IVPUSH ONETIME PRN PRN Reason: Respiratory Depression Stop: 12/24/17 15:53 Non-Formulary Medication ( Vit No.78/Iron/Fa [Prenatabs Fa]) 1 each PO DAILY [facility] Octyl Cyanoacrylate (Dermabond Advance) Confirm Administered Dose 1 applic .ROUTE .STK-MED ONE Stop: 12/23/17 08:34 Ondansetron HCl (Zofran) Confirm Administered Dose 4 mg .ROUTE .STK-MED ONE Stop: 12/23/17 07:17 Oxytocin (Pitocin) Confirm Administered Dose 20 unit .ROUTE .STK-MED ONE Stop: 12/23/17 07:17 Phenylephrine HCl (Phenylephrine In Ns 100 Mcg/Ml) Confirm Administered Dose 1 mg .ROUTE .STK-MED ONE Stop: 12/23/17 08:30 Prenat Multivit/[employer] Plant Operator/Iron/Folic Ac ( Mtr) 1 each PO DAILY [facility] Sodium Chloride (Saline Flush) 10 ml FLUSH ASDIRECTED PRN PRN Reason: Keep Vein Open Sodium Chloride (Saline Flush) 2.5 ml FLUSH ASDIRECTED PRN PRN Reason: Keep Vein Open Sodium Chloride (Saline Flush) 10 ml FLUSH ASDIRECTED PRN PRN Reason: Keep Vein Open Sodium Chloride (Saline Flush) 2.5 ml FLUSH ASDIRECTED PRN PRN Reason: Keep Vein Open - Infant Interaction Disposition, : in Room with Family Infant Interaction: Holding Infant Feeding: Bottle Fed Infant Support Person: Other (see below) - Recovery Exam Fundal Tone: Firm Fundal Level: 1 Fingerbreadths Below Umbilicus Fundal Placement: Midline Lochia Amount: Scant Lochia Color: Rubra/Red Perineum Description: Intact, Minimal Bruising/Swelling Episiotomy/Laceration: Approximated Bladder Status: Voiding Urinary Elimination: Voided - Exam General: Alert, Oriented Lungs: Normal Respiratory Effort Cardiovascular: Regular Rate, Regular Rhythm GI/Abdominal Exam: Normal Bowel Sounds, Soft, Non-Tender Extremities: Pedal Edema (trace). No: Kiersten's Sign Skin: Warm, Dry, Intact Psy/Mental Status: Alert, Normal Affect, Normal Mood - Problem List & Annotations (1) delivery delivered SNOMED Code(s): 714744744 Code(s): O82 - ENCOUNTER FOR DELIVERY WITHOUT INDICATION Status: Acute Current Visit: Yes - Problem List Review Problem List Initiated/Reviewed/Updated: Yes - My Orders Last 24 Hours: My Active Orders 12/25/17 07:58 Ready for Discharge [RC] PER UNIT ROUTINE - Assessment Assessment:: POD#2 s/p RLTCS. Bottle fed . Minimal pain and lochia. - Plan Plan:: VS are stable, patient would like to go home today. Discharge instructions reviewed. Infection and bleeding warnings reviewed. Follow up at clinic 1 and 6 weeks. Discharge to home. Has iron pills at home--advised to continue taking as is still anemic. She voices her understanding.
[2017-12-25] MEDS: Ibuprofen 800 MG Tab PO PRN (08:17)
[2017-12-25] MEDS: Docusate Sodium 100 MG Cap PO SCH (08:17)
[2017-12-25] MEDS: Nicotine 21 MG/24 Hr Patch TRDERM SCH ×2 (10:00→10:01)
== END 2017-12-25 10:55 | disposition home or self-care (01) | DRG 766 ==
LOC: MW.OB 05:00
PROVIDERS: ADMIT Obstetrics & Gynecology; ATTEND Obstetrics & Gynecology
PROC: 10D00Z1 Extraction of Products of Conception, Low, Open Approach (ICD-10-PCS; principal; 2017-12-23)
DX: O34.211 Maternal care for low transverse scar from previous cesarean delivery (principal); Z3A.39 39 weeks gestation of pregnancy; Z37.0 Single live birth; O99.334 Smoking (tobacco) complicating childbirth; F17.210 Nicotine dependence, cigarettes, uncomplicated
CPT/HCPCS: 36415; 59025; 85014; 85018; 85027; 86850; 86900; 86901; A9270-GY; J0690; J1885; J2274; J2405; J2590; J7120